=== PATIENT | female | born 1980 | race Two or more races ===

== ENCOUNTER 2021-02-14 06:25 | Day surgery (SDC) | payer OTHER ==
[2021-02-14] MEDS ORDERED: PERCOCET 5-3251 EACH PO (12:15)
[2021-02-17] MEDS ORDERED: LEVO-T25 MCG PO (21:41)
== END 2021-02-14 14:35 | disposition home or self-care (01) ==
LOC: CIR.AMB 06:25
PROVIDERS: ATTEND Surgery
DX: C73 Malignant neoplasm of thyroid gland (principal); D35.1 Benign neoplasm of parathyroid gland; Z20.822 Contact with and (suspected) exposure to COVID-19

== ENCOUNTER → 2021-02-17 | Emergency (ER) | payer OTHER ==
[~2021-02-17] VITALS: Ht 165.1 cm; Wt 102.5 kg
[~2021-02-17] MED LIST: LEVO-T25 MCG PO; PERCOCET 5-3251 EACH PO
== END | disposition home or self-care (01) ==
LOC: ER 21:19
DX: M54.2 Cervicalgia (principal)

== ENCOUNTER 2021-05-20 18:13 | Emergency (ER) | payer OTHER ==
[~2021-05-20] VITALS: Ht 165.1 cm; Wt 102.5 kg
[2021-05-20] MEDS ORDERED: ADVIL (18:26)
[2021-05-20] MEDS ORDERED: SYNTHROID (18:27)
[2021-05-20] MEDS ORDERED: TYLENOL (18:27)
[2021-05-20] MEDS ORDERED: MEDROLPACK PO (20:51)
== END 2021-05-20 22:07 | disposition home or self-care (01) ==
LOC: ER 18:13
DX: M65.241 Calcific tendinitis, right hand (principal); M25.531 Pain in right wrist

== ENCOUNTER 2022-01-01 22:35 | Emergency (ER) | payer OTHER ==
[~2022-01-01] VITALS: Ht 165.1 cm; Wt 88.9 kg
[~2022-01-01 22:35] MED LIST changes: +ADVIL; +MEDROLPACK PO; +SYNTHROID; +TYLENOL
[2022-01-01] MEDS ORDERED: NORFLEX100MG PO (23:56)
[2022-01-01] MEDS ORDERED: NABUMETONE750 MG PO (23:56)
== END 2022-01-01 23:59 | disposition home or self-care (01) ==
LOC: ER 22:35
DX: M62.838 Other muscle spasm (principal)

== ENCOUNTER 2022-05-21 20:09 | Emergency (ER) | payer OTHER ==
[~2022-05-21] VITALS: Ht 165.1 cm; Wt 88.9 kg
[~2022-05-21 20:09] MED LIST changes: +NABUMETONE750 MG PO; +NORFLEX100MG PO
[2022-05-21] MEDS ORDERED: LEVALBUTER1.25 MG/0. IH (23:55)
[2022-05-21] MEDS ORDERED: BUDEO.25 IH (23:55)
[2022-05-21] MEDS ORDERED: ZITHROMAX500 MG PO (23:58)
== END 2022-05-22 00:15 | disposition home or self-care (01) ==
LOC: ER 20:09
DX: U07.1 COVID-19 (principal); E03.9 Hypothyroidism, unspecified